=== PATIENT | female | born 1995 | race African-American/Black ===

== ENCOUNTER 2017-02-20 10:08 | Emergency (ER) | payer OTHER ==
[2017-02-20 09:00] LABS: ASCORBIC ACID (UR NOT ORDER) NEG (NEG); BILIRUBIN, URINE NEGATIVE (NEG); ER URINALYSIS TAT 0 Hrs 00 Mins; KETONE, URINE NEGATIVE (NEG); LEUKOCYTE ESTERASE(NOT OR LARGE (NEG); NITRITE (URINE) NEG (NEG); WBC (NOT ORDERED) (RFLEX) 9 (0-5)
[2017-02-20 11:42] LABS: CHLAMYDIA TRACH PCR NOT DETECTED (NOT DETEC); GC PCR NOT DETECTED (NOT DETECT); SOURCE: FEMALE URINE
== END 2017-02-20 10:48 | disposition home or self-care (01) ==
LOC: ER 10:08
PROVIDERS: Nurse Practitioner
DX: N76.0 Acute vaginitis (principal); N39.0 Urinary tract infection, site not specified; Z91.09 Other allergy status, other than to drugs and biological substances
CPT/HCPCS: 81001; 84703; 87086; 87210; 87491; 87591; 96372; 99283; A9270-GY